=== PATIENT | male | born 1960 | race African-American/Black ===

== ENCOUNTER 2018-11-16 19:22 | Inpatient (IN) | payer OTHER ==
[2018-11-16 19:35] VITALS: BMI 22.9
--- NOTE | 2018-11-16 21:02 | HP ---
CIWA Score Nausea/Vomitin-Mild Nausea/No Vomiting Muscle Tremors: 4-Moderate,w/Arms Extend Anxiety: 4-Mod. Anxious/Guarded Agitation: 3 Paroxysmal Sweats: 2 Orientation: 0-Oriented Tacttile Disturbances: 1-Very Mild Itch/Numbness Auditory Disturbances: 0-None Visual Disturbances: 0-None Headache: 3-Moderate CIWA-Ar Total Score: 18 - Admission Criteria [facility]ASAS Guidelines: Admission for Medically Managed Detox: Requires at least one of the followin. CIWA greater than 12 2. Seizures within the past 24 hours 3. Delirium tremens within the past 24 hours 4. Hallucinations within the past 24 hours 5. Acute intervention needed for co occurring medical disorder 6. Acute intervention needed for co occurring psychiatric disorder 7. Severe withdrawal that cannot be handled at a lower level of care (continued vomiting, continued diarrhea, abnormal vital signs) requiring intravenous medication and/or fluids 8. Admission ROS [facility] Chief Complaint: Alcohol withdrawal symptoms Allergies/Adverse Reactions: Allergies Allergy/AdvReac Type Severity Reaction Status Date / Time Penicillins Allergy Severe numbness Verified 11/16/18 20:50 to lower extremities History of Present Illness: 58 years old male with 27 years history of alcohol dependence is seeking admission to detox. Patient reports 7 years of sobriety. He has medical history of asthma, hypertension, Heart attacks, cancer of rectum, Hyperlipidemia, depression and anxiety. He reports suicide attempt in 1980 and 1985. Denies suicidal ideation at this time. Exam Limitations: No Limitations - Ebola screening Have you traveled outside of the country in the last 21 days: No (N) Have you had contact with anyone from an Ebola affected area: No Have you been sick,other than usual withdrawal symptoms: No Do you have a fever: No - Review of Systems Constitutional: Chills, Loss of Appetite, Malaise, Night Sweats, Changes in sleep EENT: reports: Nose Congestion Respiratory: reports: No Symptoms reported Cardiac: reports: No Symptoms Reported GI: reports: Diarrhea (x 2), Poor Appetite, Poor Fluid Intake, Abdominal cramping : reports: No Symptoms Reported Musculoskeletal: reports: Back Pain Integumentary: reports: Dryness, Flushing Neuro: reports: Tremors Endocrine: reports: No Symptoms Reported Hematology: reports: No Symptoms Reported Psychiatric: reports: Anxious, Depressed Other Systems: Reviewed and Negative Patient History - Patient Medical History Hx Anemia: No Hx Asthma: Yes (Not on medication) Hx Chronic Obstructive Pulmonary Disease (COPD): No Hx Cancer: No Hx Cardiac Disorders: Yes (HEART ATTACK, Angioplasty with 2 stent in 1990) Hx Hypertension: Yes (Not on medication) Hx Hypercholesterolemia: Yes (Not on medicationon med) Hx Pacemaker: No HX Cerebrovascular Accident: No Hx Seizures: No Hx Dementia: No Hx Diabetes: No Hx Gastrointestinal Disorders: Yes (CA RECTUM 2000 - Treated) Hx Liver Disease: No Hx Genitourinary Disorders: No Hx Sexually Transmitted Disorders: No Hx Renal Disease (ESRD): No Hx Thyroid Disease: No Hx Human Immunodeficiency Virus (HIV): No (Negative 2018) Hx Hepatitis C: No Hx Depression: Yes (Not on medication) Hx Suicide Attempt: Yes (Attempt in 1980, 1995 and 2000. Denies suicidal ideation at this time) Hx Schizophrenia: No Other Medical History: Anxiety - Not on medication - Patient Surgical History Past Surgical History: Yes Hx Neurologic Surgery: No Hx Cataract Extraction: No Hx Cardiac Surgery: Yes (angioplasty with 2 stents in 1998) Hx Lung Surgery: No Hx Breast Surgery: No Hx Breast Biopsy: No Hx Abdominal Surgery: Yes (carcinoma of rectum s/p surgery,radiation and chemo in 2000 at [facility]) Hx Appendectomy: No Hx Cholecystectomy: No Hx Genitourinary Surgery: No Hx Section: No Hx Orthopedic Surgery: No Other Surgical History: Surgery for Colon CA 2000 Anesthesia Reaction: No - PPD History Previous Implant?: No (PPD POSITIVE. TREATED WITH INH) Documented Results: Positive w/o proof Implanted On Prior R Admission?: No PPD to be Administered?: No - Reproductive History Patient is a Female of Child Bearing Age (11 -55 yrs old): No (MALE) - Smoking Cessation Smoking history: Current every day smoker Have you smoked in the past 12 months: Yes Aproximately how many cigarettes per day: 5 Cigars Per Day: 0 Hx Chewing Tobacco Use: No Initiated information on smoking cessation: Yes 'Breaking Loose' booklet given: 11/16/18 Family Disease History - Family Disease History Family Disease History: Other: Father (alcohol), Mother (dsa), Sister (dsa) Admission Physical Exam [facility] - Vital Signs Vital Signs: Vital Signs - 24 hr 11/16/18 19:33 Temperature 98.1 F Pulse Rate 81 Respiratory 18 Rate Blood Pressure 130/76 - Physical General Appearance: Yes: Moderate Distress, Tremorous, Irritable, Sweating, Anxious HEENTM: Yes: EOMI, Normal ENT Inspection, Normal Voice, JAYA Respiratory: Yes: Lungs Clear, Normal Breath Sounds, No Respiratory Distress Neck: Yes: Supple Breast: Yes: Breast Exam Deferred Cardiology: Yes: Regular Rhythm, Regular Rate Abdominal: Yes: Normal Bowel Sounds Genitourinary: Yes: Within Normal Limits Back: Yes: Normal Inspection Musculoskeletal: Yes: Back pain, Muscle Pain Extremities: Yes: Tremors Neurological: Yes: Alert, Normal Mood/Affect Integumentary: Yes: Warm Lymphatic: Yes: Within Normal Limits - Diagnostic (1) Alcohol dependence with uncomplicated withdrawal Current Visit: Yes Status: Chronic (2) Asthma Current Visit: Yes Status: Chronic Qualifiers: Asthma severity: mild Asthma persistence: intermittent (3) Past heart attack Current Visit: Yes Status: Chronic (4) Anxiety Current Visit: Yes Status: Chronic (5) Cocaine dependence Current Visit: Yes Status: Acute (6) Essential hypertension Current Visit: Yes Status: Acute (7) Hypercholesterolemia Current Visit: Yes Status: Acute (8) depression Current Visit: Yes Status: Acute Cleared for Admission [facility] - Detox or Rehab [facility] Level of Care: Medically Managed Detox Regimen/Protocol: Librium [facility] Breath Alcohol Content Breath Alcohol Content: 0.030 Urine Drug Screen - Results Drug Screen Negative: Yes Urine Drug Screen Results: LAVELLE-Cocaine, BZO-Benzodiazepines
[2018-11-16] MEDS ORDERED: IBUPROFEN 400 MG TABLET (FP) PO PRN (21:14)
[2018-11-16] MEDS ORDERED: MAG HYDROX/AL HYDROX/SIMETH 30 ML UNIT-DOSE CUP PO PRN (21:14)
[2018-11-16] MEDS ORDERED: LOPERAMIDE HCL 2 MG CAPSULE PO PRN (21:14)
[2018-11-16] MEDS ORDERED: MAGNESIUM HYDROX 2400MG/30ML ORAL SUSPENSION 30 ML CUP PO PRN (21:14)
[2018-11-16] MEDS ORDERED: chlordiazePOXIDE HCL 25 MG CAPSULE PO PRN (21:14)
[2018-11-16] MEDS ORDERED: MENTHOL/PHENOL 1 EACH UD MM PRN (21:14)
[2018-11-16] MEDS ORDERED: guaiFENesin/D-METHORPHAN HB 10 ML UNIT-DOSE CUPS PO PRN (21:14)
[2018-11-16] MEDS ORDERED: NICOTINE POLACRILEX 2 MG GUM BC PRN (21:14)
[2018-11-16] MEDS ORDERED: MAGNESIUM CITRATE 300 ML BOTTLE PO PRN (21:14)
[2018-11-16] MEDS ORDERED: ACETAMINOPHEN 325 MG TABLET (FP) PO PRN (21:14)
[2018-11-16] MEDS ORDERED: ALBUTEROL SO4 8 GM HFA INHALER IH PRN (21:15)
[2018-11-16] MEDS: THIAMINE HCL 100 MG TABLET (FP) PO SCH (21:57)
[2018-11-16] MEDS: METOPROLOL TARTRATE 50 MG TABLET (FP) PO SCH (21:57)
[2018-11-16] MEDS: chlordiazePOXIDE HCL 25 MG CAPSULE PO SCH (22:01)
[2018-11-17] MEDS: chlordiazePOXIDE HCL 25 MG CAPSULE PO SCH ×4 (05:28→22:23)
[2018-11-17] MEDS: PRENATAL VITAMINS W/ FOLIC ACID TABLET (FP) PO SCH (10:18)
[2018-11-17] MEDS: METOPROLOL TARTRATE 50 MG TABLET (FP) PO SCH ×2 (10:18→22:22)
[2018-11-17] MEDS: ASPIRIN COATED 81 MG TABLET.EC PO SCH (10:19)
[2018-11-17] MEDS: NICOTINE 14 MG/24 HOURS TOPICAL PATCH TD SCH (10:19)
[2018-11-17] MEDS: ISOSORBIDE DINITRATE 10 MG TABLET (FP) PO SCH ×2 (10:19→17:12)
[2018-11-17 10:24] LABS: ALBUMIN 2.9 g/dl (3.4-5.0); ALK PHOS 66 U/L (45-117); ANION GAP 6 MMOL/L (8-16); BILIRUBIN,TOTAL 0.1 mg/dL (0.2-1); BLOOD UREA NITROGEN 13 mg/dL (7-18); CALCIUM 8.7 mg/dL (8.5-10.1); CHLORIDE 111 mmol/L (98-107); CO2 30 mmol/L (21-32); CREATININE 0.9 mg/dL (0.55-1.3); GLUCOSE,RANDOM 97 mg/dL (74-106); POTASSIUM 3.7 mmol/L (3.5-5.1); SGOT/AST 40 U/L (15-37); SGPT/ALT 50 U/L (13-61); SODIUM 147 mmol/L (136-145); TOT PROT 5.3 g/dl (6.4-8.2)
[2018-11-17 10:43] LABS: HEMATOCRIT 34.8 % (35.4-49); HEMOGLOBIN 11.8 GM/dL (11.7-16.9); MCH 31.6 pg (25.7-33.7); MCHC 33.8 g/dl (32.0-35.9); MEAN CELL VOLUME 93.4 fl (80-96); MEAN PLT VOLUME 7.9 fl (7.5-11.1); PLATELET COUNT 283 K/MM3 (134-434); RBC 3.73 M/mm3 (4.00-5.60); RDW 13.7 % (11.9-15.9)
[2018-11-17] MEDS: amLODIPine BESYLATE 5 MG TABLET (FP) PO SCH (11:16)
--- NOTE | 2018-11-17 13:24 | PN ---
S CIWA - CIWA Score Nausea/Vomitin-Mild Nausea/No Vomiting Muscle Tremors: 3 Anxiety: 3 Agitation: 3 Paroxysmal Sweats: 1-Minimal Palms Moist Orientation: 1-Uncertain about Date Tacttile Disturbances: 0-None Auditory Disturbances: 1-Very Mild Visual Disturbances: 0-None Headache: 1-Very Mild CIWA-Ar Total Score: 14 S Progress Note (SOAP) Subjective: tremor sweating disoriented to date of the week restlessness Objective: 11/17/18 13:24 Vital Signs Temperature 99.1 F 11/17/18 09:39 Pulse Rate 89 11/17/18 09:39 Respiratory Rate 17 11/17/18 09:39 Blood Pressure 110/65 11/17/18 09:39 O2 Sat by Pulse Oximetry (%) Laboratory Last Values WBC 6.0 K/mm3 (4.0-10.0) 11/17/18 07:50 RBC 3.73 M/mm3 (4.00-5.60) L 11/17/18 07:50 Hgb 11.8 GM/dL (11.7-16.9) 11/17/18 07:50 Hct 34.8 % (35.4-49) L 11/17/18 07:50 MCV 93.4 fl (80-96) 11/17/18 07:50 MCH 31.6 pg (25.7-33.7) 11/17/18 07:50 MCHC 33.8 g/dl (32.0-35.9) 11/17/18 07:50 RDW 13.7 % (11.9-15.9) 11/17/18 07:50 Plt Count 283 K/MM3 (134-434) D 11/17/18 07:50 MPV 7.9 fl (7.5-11.1) 11/17/18 07:50 Sodium 147 mmol/L (136-145) H 11/17/18 07:50 Potassium 3.7 mmol/L (3.5-5.1) 11/17/18 07:50 Chloride 111 mmol/L (98-107) H 11/17/18 07:50 Carbon Dioxide 30 mmol/L (21-32) 11/17/18 07:50 Anion Gap 6 MMOL/L (8-16) L 11/17/18 07:50 BUN 13 mg/dL (7-18) 11/17/18 07:50 Creatinine 0.9 mg/dL (0.55-1.3) 11/17/18 07:50 Creat Clearance w eGFR > 60 (>60) 11/17/18 07:50 Random Glucose 97 mg/dL (74-106) 11/17/18 07:50 Calcium 8.7 mg/dL (8.5-10.1) 11/17/18 07:50 Total Bilirubin 0.1 mg/dL (0.2-1) L 11/17/18 07:50 AST 40 U/L (15-37) H 11/17/18 07:50 ALT 50 U/L (13-61) 11/17/18 07:50 Alkaline Phosphatase 66 U/L (45-117) 11/17/18 07:50 Total Protein 5.3 g/dl (6.4-8.2) L 11/17/18 07:50 Albumin 2.9 g/dl (3.4-5.0) L 11/17/18 07:50 RPR Titer Nonreactive (NONREACTIVE) 11/17/18 07:50 lab noted Assessment: 11/17/18 13:24 withdrawal sx Plan: continue detox
[2018-11-17] MEDS: THIAMINE HCL 100 MG TABLET (FP) PO SCH (22:22)
[2018-11-17] MEDS: MELATONIN 5 MG TABLETS PO PRN (22:23)
[2018-11-18] MEDS: P-EPHED 60MG/TRIPROLIDI 2.5MG TABLET PO PRN ×2 (05:35→19:35)
[2018-11-18] MEDS: chlordiazePOXIDE HCL 25 MG CAPSULE PO SCH ×3 (05:35→17:34)
[2018-11-18] MEDS: ISOSORBIDE DINITRATE 10 MG TABLET (FP) PO SCH ×2 (10:12→17:33)
[2018-11-18] MEDS: PRENATAL VITAMINS W/ FOLIC ACID TABLET (FP) PO SCH (10:12)
[2018-11-18] MEDS: amLODIPine BESYLATE 5 MG TABLET (FP) PO SCH (10:12)
[2018-11-18] MEDS: METOPROLOL TARTRATE 50 MG TABLET (FP) PO SCH ×2 (10:12→22:25)
[2018-11-18] MEDS: ASPIRIN COATED 81 MG TABLET.EC PO SCH (10:12)
[2018-11-18] MEDS: NICOTINE 14 MG/24 HOURS TOPICAL PATCH TD SCH (10:13)
--- NOTE | 2018-11-18 11:53 | PN ---
S CIWA - CIWA Score Nausea/Vomitin-No Nausea/No Vomiting Muscle Tremors: 3 Anxiety: 2 Agitation: 1-Slight > Activity Paroxysmal Sweats: 1-Minimal Palms Moist Orientation: 1-Uncertain about Date Tacttile Disturbances: 0-None Auditory Disturbances: 0-None Visual Disturbances: 0-None Headache: 2-Mild CIWA-Ar Total Score: 10 S Progress Note (SOAP) Subjective: tremor sweating otherwise feeling ok social with peers in day room Objective: 11/18/18 11:53 Vital Signs Temperature 96.1 F L 11/18/18 09:10 Pulse Rate 76 11/18/18 09:10 Respiratory Rate 18 11/18/18 09:10 Blood Pressure 119/75 11/18/18 09:10 O2 Sat by Pulse Oximetry (%) Laboratory Last Values WBC 6.0 K/mm3 (4.0-10.0) 11/17/18 07:50 RBC 3.73 M/mm3 (4.00-5.60) L 11/17/18 07:50 Hgb 11.8 GM/dL (11.7-16.9) 11/17/18 07:50 Hct 34.8 % (35.4-49) L 11/17/18 07:50 MCV 93.4 fl (80-96) 11/17/18 07:50 MCH 31.6 pg (25.7-33.7) 11/17/18 07:50 MCHC 33.8 g/dl (32.0-35.9) 11/17/18 07:50 RDW 13.7 % (11.9-15.9) 11/17/18 07:50 Plt Count 283 K/MM3 (134-434) D 11/17/18 07:50 MPV 7.9 fl (7.5-11.1) 11/17/18 07:50 Sodium 147 mmol/L (136-145) H 11/17/18 07:50 Potassium 3.7 mmol/L (3.5-5.1) 11/17/18 07:50 Chloride 111 mmol/L (98-107) H 11/17/18 07:50 Carbon Dioxide 30 mmol/L (21-32) 11/17/18 07:50 Anion Gap 6 MMOL/L (8-16) L 11/17/18 07:50 BUN 13 mg/dL (7-18) 11/17/18 07:50 Creatinine 0.9 mg/dL (0.55-1.3) 11/17/18 07:50 Creat Clearance w eGFR > 60 (>60) 11/17/18 07:50 Random Glucose 97 mg/dL (74-106) 11/17/18 07:50 Calcium 8.7 mg/dL (8.5-10.1) 11/17/18 07:50 Total Bilirubin 0.1 mg/dL (0.2-1) L 11/17/18 07:50 AST 40 U/L (15-37) H 11/17/18 07:50 ALT 50 U/L (13-61) 11/17/18 07:50 Alkaline Phosphatase 66 U/L (45-117) 11/17/18 07:50 Total Protein 5.3 g/dl (6.4-8.2) L 11/17/18 07:50 Albumin 2.9 g/dl (3.4-5.0) L 11/17/18 07:50 RPR Titer Nonreactive (NONREACTIVE) 11/17/18 07:50 lab noted Assessment: 11/18/18 11:54 withdrawal sx Plan: continue detox
[2018-11-18] MEDS: chlordiazePOXIDE 5 MG CAPSULE PO SCH (22:25)
[2018-11-18] MEDS: THIAMINE HCL 100 MG TABLET (FP) PO SCH (22:25)
[2018-11-18] MEDS: MELATONIN 5 MG TABLETS PO PRN (22:26)
[2018-11-19] MEDS: chlordiazePOXIDE 5 MG CAPSULE PO SCH ×3 (05:23→17:08)
--- NOTE | 2018-11-19 09:42 | PN ---
[facility] Progress Note (SOAP) Subjective: feeling better less tremor mild sweating discuss aftercare with staff Objective: 11/19/18 09:41 Vital Signs Temperature 97.3 F L 11/19/18 09:26 Pulse Rate 96 H 11/19/18 09:26 Respiratory Rate 20 11/19/18 09:26 Blood Pressure 116/65 11/19/18 09:26 O2 Sat by Pulse Oximetry (%) Laboratory Last Values WBC 6.0 K/mm3 (4.0-10.0) 11/17/18 07:50 RBC 3.73 M/mm3 (4.00-5.60) L 11/17/18 07:50 Hgb 11.8 GM/dL (11.7-16.9) 11/17/18 07:50 Hct 34.8 % (35.4-49) L 11/17/18 07:50 MCV 93.4 fl (80-96) 11/17/18 07:50 MCH 31.6 pg (25.7-33.7) 11/17/18 07:50 MCHC 33.8 g/dl (32.0-35.9) 11/17/18 07:50 RDW 13.7 % (11.9-15.9) 11/17/18 07:50 Plt Count 283 K/MM3 (134-434) D 11/17/18 07:50 MPV 7.9 fl (7.5-11.1) 11/17/18 07:50 Sodium 147 mmol/L (136-145) H 11/17/18 07:50 Potassium 3.7 mmol/L (3.5-5.1) 11/17/18 07:50 Chloride 111 mmol/L (98-107) H 11/17/18 07:50 Carbon Dioxide 30 mmol/L (21-32) 11/17/18 07:50 Anion Gap 6 MMOL/L (8-16) L 11/17/18 07:50 BUN 13 mg/dL (7-18) 11/17/18 07:50 Creatinine 0.9 mg/dL (0.55-1.3) 11/17/18 07:50 Creat Clearance w eGFR > 60 (>60) 11/17/18 07:50 Random Glucose 97 mg/dL (74-106) 11/17/18 07:50 Calcium 8.7 mg/dL (8.5-10.1) 11/17/18 07:50 Total Bilirubin 0.1 mg/dL (0.2-1) L 11/17/18 07:50 AST 40 U/L (15-37) H 11/17/18 07:50 ALT 50 U/L (13-61) 11/17/18 07:50 Alkaline Phosphatase 66 U/L (45-117) 11/17/18 07:50 Total Protein 5.3 g/dl (6.4-8.2) L 11/17/18 07:50 Albumin 2.9 g/dl (3.4-5.0) L 11/17/18 07:50 RPR Titer Nonreactive (NONREACTIVE) 11/17/18 07:50 lab noted Assessment: 11/19/18 09:41 alcohol withdrawal sx hypertension asthma Plan: continue detox
[2018-11-19] MEDS: PRENATAL VITAMINS W/ FOLIC ACID TABLET (FP) PO SCH (10:10)
[2018-11-19] MEDS: ASPIRIN COATED 81 MG TABLET.EC PO SCH (10:10)
[2018-11-19] MEDS: ISOSORBIDE DINITRATE 10 MG TABLET (FP) PO SCH ×2 (10:10→17:08)
[2018-11-19] MEDS: METOPROLOL TARTRATE 50 MG TABLET (FP) PO SCH ×2 (10:10→22:04)
[2018-11-19] MEDS: NICOTINE 14 MG/24 HOURS TOPICAL PATCH TD SCH (10:11)
[2018-11-19] MEDS: amLODIPine BESYLATE 5 MG TABLET (FP) PO SCH (10:11)
[2018-11-19] MEDS: P-EPHED 60MG/TRIPROLIDI 2.5MG TABLET PO PRN (10:11)
[2018-11-19] MEDS: chlordiazePOXIDE HCL 10 MG CAPSULE PO SCH (22:04)
[2018-11-19] MEDS: MELATONIN 5 MG TABLETS PO PRN (22:04)
[2018-11-19] MEDS: THIAMINE HCL 100 MG TABLET (FP) PO SCH (22:04)
[2018-11-20] MEDS: chlordiazePOXIDE HCL 10 MG CAPSULE PO SCH (05:48)
[2018-11-20 06:21] VITALS: BP 110/68; PULSE 74; TEMP 97
--- NOTE | 2018-11-20 13:33 | DS ---
[facility] Detox Discharge Summary Admission Date: 11/16/18 Discharge Date: 11/20/18 - History Present History: Alcohol Dependence Additional Comments: 58 years old male admitted on 11/16/18 for alcohol and opiate withdrawal stabilization completed detox regimen aftercare [facility] Pertinent Past History: strong recommend 12 step community self help meeting encourage the patient keeps medication list in wallet and bring the list to aftercare appointment and follow up with cardiology pulmonology or primary care provider update medication list when changes of medication informed the important of medication adherence as well as alcohol related negative consequences in relation to hypertension - Physical Exam Results Vital Signs: Vital Signs Temperature 97.0 F L 11/20/18 06:20 Pulse Rate 74 11/20/18 06:20 Respiratory Rate 18 11/20/18 06:20 Blood Pressure 110/68 11/20/18 06:20 O2 Sat by Pulse Oximetry (%) Pertinent Admission Physical Exam Findings: alcohol withdrawal sx Laboratory Last Values WBC 6.0 K/mm3 (4.0-10.0) 11/17/18 07:50 RBC 3.73 M/mm3 (4.00-5.60) L 11/17/18 07:50 Hgb 11.8 GM/dL (11.7-16.9) 11/17/18 07:50 Hct 34.8 % (35.4-49) L 11/17/18 07:50 MCV 93.4 fl (80-96) 11/17/18 07:50 MCH 31.6 pg (25.7-33.7) 11/17/18 07:50 MCHC 33.8 g/dl (32.0-35.9) 11/17/18 07:50 RDW 13.7 % (11.9-15.9) 11/17/18 07:50 Plt Count 283 K/MM3 (134-434) D 11/17/18 07:50 MPV 7.9 fl (7.5-11.1) 11/17/18 07:50 Sodium 147 mmol/L (136-145) H 11/17/18 07:50 Potassium 3.7 mmol/L (3.5-5.1) 11/17/18 07:50 Chloride 111 mmol/L (98-107) H 11/17/18 07:50 Carbon Dioxide 30 mmol/L (21-32) 11/17/18 07:50 Anion Gap 6 MMOL/L (8-16) L 11/17/18 07:50 BUN 13 mg/dL (7-18) 11/17/18 07:50 Creatinine 0.9 mg/dL (0.55-1.3) 11/17/18 07:50 Creat Clearance w eGFR > 60 (>60) 11/17/18 07:50 Random Glucose 97 mg/dL (74-106) 11/17/18 07:50 Calcium 8.7 mg/dL (8.5-10.1) 11/17/18 07:50 Total Bilirubin 0.1 mg/dL (0.2-1) L 11/17/18 07:50 AST 40 U/L (15-37) H 11/17/18 07:50 ALT 50 U/L (13-61) 11/17/18 07:50 Alkaline Phosphatase 66 U/L (45-117) 11/17/18 07:50 Total Protein 5.3 g/dl (6.4-8.2) L 11/17/18 07:50 Albumin 2.9 g/dl (3.4-5.0) L 11/17/18 07:50 RPR Titer Nonreactive (NONREACTIVE) 11/17/18 07:50 lab noted - Treatment Hospital Course: Detox Protocol Followed, Detoxed Safely, Responded well, Discharged Condition Good, Rehab Referral Accepted Patient has Accepted a Rehab Referral to: as per counselor arrangement - Medication Discharge Medications: Ambulatory Orders Mirtazapine [Remeron] 30 mg PO HS 05/22/13 Olanzapine 20 mg PO HS 05/22/13 Salmeterol/Fluticasone [Advair 250Mcg/50Mcg -] 1 inh IH AM 05/22/13 Aspirin Coated [Ecotrin -] 81 mg PO DAILY #30 tablet.ec 06/02/13 Isosorbide Dinitrate 10 mg PO AM #30 tablet 06/02/13 Metoprolol Tartrate 50 mg AD BID #60 06/02/13 Albuterol Sulfate Inhaler - [Ventolin HFA Inhaler -] 2 inh IH Q4H PRN #1 inh 03/02 Amlodipine Besylate [Norvasc -] 5 mg PO DAILY #14 tablet 11/19/18 Metoprolol Tartrate [Lopressor -] 50 mg PO BID #30 tablet 11/19/18 - Diagnosis (1) Weight decreased Status: Active (2) Essential hypertension Status: Chronic (3) Hypercholesterolemia Status: Chronic (4) Alcohol dependence with uncomplicated withdrawal Status: Acute (5) Asthma Status: Chronic Qualifiers: Asthma severity: mild Asthma persistence: intermittent Asthma complication type: with status asthmaticus Qualified Code(s): J45.22 - Mild intermittent asthma with status asthmaticus - AMA Did Patient Leave Against Medical Advice: No
== END 2018-11-20 07:35 | disposition home or self-care (01) | DRG 774 ==
LOC: YASAS 19:22 → Y3N 20:58
PROVIDERS: ADMIT Neuromusculoskeletal Medicine & OMM; ATTEND Neuromusculoskeletal Medicine & OMM
PROC: HZ2ZZZZ Detoxification Services for Substance Abuse Treatment (ICD-10-PCS; principal; 2018-11-16)
DX: F10.230 Alcohol dependence with withdrawal, uncomplicated (principal); F14.20 Cocaine dependence, uncomplicated; F17.210 Nicotine dependence, cigarettes, uncomplicated; F41.9 Anxiety disorder, unspecified; F32.9 Major depressive disorder, single episode, unspecified; I10 Essential (primary) hypertension; E78.00 Pure hypercholesterolemia, unspecified; J45.22 Mild intermittent asthma with status asthmaticus; Z85.048 Personal history of other malignant neoplasm of rectum, rectosigmoid junction, and anus; Z86.79 Personal history of other diseases of the circulatory system; Z88.0 Allergy status to penicillin; Z95.5 Presence of coronary angioplasty implant and graft; Z91.5 Personal history of self-harm
CPT/HCPCS: 36415; 71046-TC-FY; 80053; 85027; 86593